=== PATIENT | female | born 1965 | race African-American/Black ===

== ENCOUNTER 2020-04-19 13:17 | Outpatient (REF) | payer MEDICAID, SELFPAY ==
[2020-04-20 04:02] LABS: HIV AB/AG Nonreactive (Nonreactive); HIV Num 1 0.21 S/CO (0.00-0.99)
== END 2020-04-19 13:18 | disposition home or self-care (01) ==
LOC: HO.LAB 13:17
PROVIDERS: Visit Provider Obstetrics & Gynecology
DX: R87.810 Cervical high risk human papillomavirus (HPV) DNA test positive (principal)
CPT/HCPCS: 87389; 99202

== ENCOUNTER → 2021-03-09 10:19 | Outpatient (BNVA) | payer MEDICAID, SELFPAY | PROVIDERS: PCP Nurse Practitioner Primary Care; Referring Provider Nurse Practitioner Primary Care; Visit Provider Surgery | DX: L72.0 Epidermal cyst (principal) | CPT/HCPCS: 99212 ==

== ENCOUNTER 2021-04-03 08:36 | Outpatient (REF) | payer MEDICAID, SELFPAY ==
[2021-04-03 09:04] VITALS: BP 138/67; PULSE 76; RESP 16; TEMP 36.2; O2SAT 98; BMI 35.2
[2021-04-03 09:35] VITALS: BP 158/78; PULSE 78; RESP 16; O2SAT 98
--- NOTE | 2021-04-03 09:44 | P.OP_ITS ---
Operative Note Operative Note Date of Service: 04/03/21 Narrative: Preoperative diagnosis: Left breast epidermal inclusion cyst Postoperative diagnosis: Same Procedure: Excision of left breast epidermal inclusion cyst Surgeon: Nabil Bender MD Ballet Professor: None Anesthesia: Local lidocaine 1% with epi Indications for procedure: 55-year-old female patient presenting with a palpable mass in the left breast in 9 o'clock position with a bluish discoloration. Patient underwent workup with an ultrasound which confirmed an epidermal inclusion cyst. No suspicious findings were noted. She presents today for excision of this epidermal inclusion cyst. Operative findings: Epidermal inclusion cyst measuring approximately 1 cm in diameter in the 9 o'clock position left breast Specimen: Epidermal inclusion cyst left breast Estimated blood loss: 1 mL Complications: None Procedure details: Patient was brought to the minor surgery suite and placed in a supine position. The site of surgery was confirmed by the patient in the left breast at the 9 o'clock position. After assuring informed consent, patient's left breast was prepped with Betadine and draped in sterile fashion. Local anesthesia consisting 1% lidocaine with epinephrine was then infiltrated in elliptical fashion oriented transversely around the cyst. An elliptical incision was then made with a scalpel carried out through subcutaneous tissue. Sharp dissection was then used to dissect around the palpable cyst wall. Lesion was completely excised and sent to pathology for further examination. After assuring adequate hemostasis with light pressure skin was reapproximated using interrupted subcuticular 4-0 Polysorb sutures. Steri-Strips and Tegaderm were then applied. The patient tolerated the procedure well. He was discharged to home in stable condition.
== END 2021-04-03 08:37 | disposition home or self-care (01) ==
LOC: HO.MS 08:36
PROVIDERS: PCP Nurse Practitioner Primary Care; Visit Provider Surgery
PROC: (CPT 11401; principal; 2021-04-03 09:10)
DX: N60.82 Other benign mammary dysplasias of left breast (principal)
CPT/HCPCS: 11401; 88304

== ENCOUNTER → 2021-04-12 12:55 | Outpatient (BNVA) | payer MEDICAID, SELFPAY | PROVIDERS: PCP Nurse Practitioner Primary Care; Visit Provider Surgery | DX: L72.0 Epidermal cyst (principal) | CPT/HCPCS: 99212 ==

== ENCOUNTER 2021-07-28 07:43 | Outpatient (REF) | payer MEDICAID, SELFPAY ==
--- NOTE | ~2021-07-28 | MM_ITS ---
EXAMINATION: MM SCREENING DIGITAL BREAST TOMOSYNTHESIS, BILATERAL CLINICAL INFORMATION: Screening. Asymptomatic. The lifetime risk of breast cancer based on the Tyrer-Cuzick Model is 5%. COMPARISON: Mammography: 01/03/2020 TECHNIQUE: Digital breast tomosynthesis is performed in both the craniocaudal and mediolateral oblique views along with computer-aided detection (CAD). Synthesized 2D images are generated from the tomosynthesis. FINDINGS: There are scattered areas of fibroglandular density (ACR BI-RADS breast composition Category b). There are no significant masses, abnormal calcifications, or other abnormalities. Parenchymal pattern is similar to prior exam. The skin contours are smooth. No significant changes. MM/MM tomosynthesis screening BI IMPRESSION: No mammographic evidence of malignancy. ASSESSMENT: BI-RADS 1: Negative RECOMMENDATION: Routine annual mammography screening. This patient's information was entered into a reminder system with a target due date for their next mammogram.
== END 2021-07-28 07:44 | disposition home or self-care (01) ==
LOC: HO.MAMMO 07:43
PROVIDERS: PCP Nurse Practitioner Primary Care; Visit Provider Nurse Practitioner Primary Care
DX: Z12.31 Encounter for screening mammogram for malignant neoplasm of breast (principal)
CPT/HCPCS: 77063; 77067

== ENCOUNTER 2021-09-07 09:56 | Outpatient (REF) | payer MEDICAID, SELFPAY ==
--- NOTE | ~2021-09-07 | MR_ITS ---
EXAMINATION: MR LUMBAR SPINE WITHOUT CONTRAST CLINICAL INFORMATION: Low back pain and left lower extremity sciatica. COMPARISON: None TECHNIQUE: MRI of the lumbar spine was obtained using routine sequences without contrast. FINDINGS: The marrow signal is homogeneous. There are no compression fractures or anterior subluxations. Mild rightward curvature of the spine evident. There are no disc protrusions, central canal stenosis, or foraminal narrowing. Hypertrophic facet arthropathy is evident at the L4-L5 and L5-S1 levels with facet joint effusions. There is slightly reduced intradiscal signal and a minimal annular bulge with a mild retrosubluxation at the L4-L5 level. There is a shallow left foraminal disc protrusion resulting in mild mass effect upon the exiting left L4 nerve root at this level. The remaining disc spaces appear normal. The distal cord, conus tip, and cauda equina nerve roots appear normal. There is mild edema around the right L4-L5 facet joint, which is presumably stress-related and reactive/inflammatory in etiology. The visualized bony pelvis appears normal. MR/MR lumbar spine wo con IMPRESSION: Lower lumbar hypertrophic facet degeneration. Mild degenerative disc bulge at the L4-L5 level without central canal stenosis. Shallow left foraminal disc protrusion at the L4-L5 level with mild mass effect upon the left L4 nerve root. Rightward curvature of the lumbar spine. Mild right posterior paraspinal soft tissue edema, presumably reactive to degenerative joint disease at the L4-L5 level.
== END 2021-09-07 09:57 | disposition home or self-care (01) ==
LOC: HO.MRI 09:56
PROVIDERS: Visit Provider Nurse Practitioner Primary Care
DX: M54.42 Lumbago with sciatica, left side (principal)
CPT/HCPCS: 72148

== ENCOUNTER 2021-10-02 09:32 | Outpatient (REF) | payer MEDICAID, SELFPAY ==
--- NOTE | ~2021-10-02 | XR_ITS ---
EXAMINATION: XR LUMBAR SACRAL SPINE XR LEFT HIP CLINICAL INFORMATION: Low back pain and sciatica. COMPARISON: 09/07/2021. TECHNIQUE: 2 views of the left hip and 3-view lumbar spine series. FINDINGS: 2 views of the left hip do not demonstrate any evidence of acute fracture or dislocation. Hip joint space appears maintained. No abnormal lytic or sclerotic lesions in the femoral head identified. There is some spurring about the greater trochanter. There is a calcification overlying the junctions of the inferior acetabulum and ischium which may represent overlying vascular calcifications versus possible bone island. No lucent nidus is appreciated. There are 5 non-rib bearing lumbar vertebrae. There is partial sacralization left side of L5. Disc spaces are maintained. No acute fracture or spondylolisthesis is identified. There is increased sclerosis present about the right L5-S1 facet joint. Sacroiliac joints appear unremarkable. Pedicles are intact. XR/XR hip LT min 2V IMPRESSION: Mild spurring about the greater trochanter of the proximal left femur. Probable bone island about the junctions of the left ischium and acetabulum. Partial sacralization of the left side of L5. Facet arthropathy right side of L5-S1.
--- NOTE | ~2021-10-02 | XR_ITS ---
EXAMINATION: XR LUMBAR SACRAL SPINE XR LEFT HIP CLINICAL INFORMATION: Low back pain and sciatica. COMPARISON: 09/07/2021. TECHNIQUE: 2 views of the left hip and 3-view lumbar spine series. FINDINGS: 2 views of the left hip do not demonstrate any evidence of acute fracture or dislocation. Hip joint space appears maintained. No abnormal lytic or sclerotic lesions in the femoral head identified. There is some spurring about the greater trochanter. There is a calcification overlying the junctions of the inferior acetabulum and ischium which may represent overlying vascular calcifications versus possible bone island. No lucent nidus is appreciated. There are 5 non-rib bearing lumbar vertebrae. There is partial sacralization left side of L5. Disc spaces are maintained. No acute fracture or spondylolisthesis is identified. There is increased sclerosis present about the right L5-S1 facet joint. Sacroiliac joints appear unremarkable. Pedicles are intact. XR/XR lumbar spine 2-3V IMPRESSION: Mild spurring about the greater trochanter of the proximal left femur. Probable bone island about the junctions of the left ischium and acetabulum. Partial sacralization of the left side of L5. Facet arthropathy right side of L5-S1.
== END 2021-10-02 09:33 | disposition home or self-care (01) ==
LOC: HO.XRAY 09:32
PROVIDERS: PCP Nurse Practitioner Primary Care; Visit Provider Nurse Practitioner Primary Care
DX: M54.42 Lumbago with sciatica, left side (principal)
CPT/HCPCS: 72100; 73502

== ENCOUNTER 2021-10-03 13:18 | Outpatient (REF) | payer MEDICAID, SELFPAY ==
[2021-10-06 07:26] LABS: HPV mRNA E6/E7 rflx Not Detected (Not Detected)
== END 2021-10-03 13:19 | disposition home or self-care (01) ==
LOC: HO.LAB 13:18
PROVIDERS: PCP Nurse Practitioner Primary Care; Visit Provider Advanced Practice Midwife
DX: Z01.419 Encounter for gynecological examination (general) (routine) without abnormal findings (principal); Z11.51 Encounter for screening for human papillomavirus (HPV)
CPT/HCPCS: 87624; 88142

== ENCOUNTER 2021-10-10 09:49 | Outpatient (RCR) | payer MEDICAID, SELFPAY ==
[2021-10-10 10:08] VITALS: BP 142/83; PULSE 77
== END 2021-11-02 11:04 | disposition home or self-care (01) ==
LOC: HO.PT 09:49
PROVIDERS: PCP Nurse Practitioner Primary Care; Visit Provider Nurse Practitioner Primary Care
DX: M54.42 Lumbago with sciatica, left side (principal)
CPT/HCPCS: 97110; 97162

== ENCOUNTER → 2021-10-31 08:34 | Outpatient (BNVA) | payer MEDICAID, SELFPAY | PROVIDERS: PCP Nurse Practitioner Primary Care; Referring Provider Nurse Practitioner Primary Care; Visit Provider Physician Assistant | DX: Z12.11 Encounter for screening for malignant neoplasm of colon (principal) | CPT/HCPCS: 99202 ==